=== PATIENT | female | born 1975 | race Caucasian/White ===

== ENCOUNTER 2024-07-21 10:10 | Emergency (ER) | payer SELFPAY ==
[~2024-07-21] VITALS: Ht 153.7 cm; Wt 66.7 kg
[2024-07-21 10:16] VITALS: BP 153/71; PULSE 64; RESP 17; TEMP 98.6; O2SAT 99
[2024-07-21] MEDS ORDERED: DICYCLOMINE HCL LIQUID 10 MG/5 ML UDC ONE (10:46)
[2024-07-21] MEDS ORDERED: ALUMINUM HYD/MAG/SIMETHICONE 30 ML UDC ONE (10:46)
[2024-07-21 10:49] LABS: APPEARANCE,URINE CLEAR (CLEAR); BILIRUBIN,URINE NEGATIVE (NEGATIVE); BLOOD, URINE NEGATIVE (NEGATIVE); COLOR,URINE YELLOW (YELLOW); LEUKOCYTE ESTERASE ,URINE NEGATIVE (NEGATIVE); NITRITE, URINE NEGATIVE (NEGATIVE); PH,URINE 6.5 (5.0-9.0); PROTEIN,URINE NEGATIVE (NEGATIVE); UGLUCOSE NEGATIVE (NEGATIVE); UROBILINOGEN,URINE 0.2 EU/dL (0.2 - 1)
[2024-07-21] MEDS: DICYCLOMINE HCL LIQUID 20 MG, ALUMINUM HYD/MAG/SIMETHICONE 30 ML, LIDOCAINE VISCOUS 2% ... PO ONE (10:50)
[2024-07-21] MEDS: PANTOPRAZOLE 40 MG TABEC PO ONE (10:52)
[2024-07-21] MEDS: ONDANSETRON 4 MG ODT PO ONE (10:54)
--- NOTE | 2024-07-21 11:04 | NUR ---
48 Y/O F B[facility] WITH C/O ABD PAIN ASSOCIATED WITH EATING A SPICY TACO; PT STATES PAIN IS CENTRALIZED IN THE EPIGASTRIC REGION AND RADIATES TO THE BACK. PT STATES SHE HAS NASUEA BUT DENIES V/D; SKIN IS PINK/WARM/DRY; AAOX4 WITH EVEN AND STEADY GAIT; LUNGS CLEAR BL; HR EVEN AND REGULAR; PT DENIES ANY FEVER, CP, SOB, OR COUGH AT THIS TIME; PATIENT STATES PAIN OF 7/10 AT THIS TIME; VSS; PATIENT POSITIONED FOR COMFORT; HOB ELEVATED; BEDRAILS UP X2; BED DOWN. CALL LIGHT WITH IN REACH; URINE SAMPLE OBTAINED PER MD ORDERS; ER MD MADE AWARE OF PT STATUS. PMH: DENIES ALLERGIES NKA
--- NOTE | 2024-07-21 11:08 | NUR ---
PT HAS BEEN MEDICATED PER PROVIDERS ORDERS.
[2024-07-21 11:09] VITALS: O2SAT 100
[2024-07-21 11:46] LABS: BASOPHILS % (AUTO) 0.3 % (0.0-2.0); EOSINOPHILS # (AUTO) 0.2 K/uL (0-0.4); EOSINOPHILS % (AUTO) 1.1 % (0.0-4.0); HEMATOCRIT 42.3 % (36-48); HEMOGLOBIN 13.6 g/dL (12.0-16.0); LYMPHOCYTES # (AUTO) 0.8 K/uL (2.5-16.5); LYMPHOCYTES % (AUTO) 5.7 % (20.5-51.1); MEAN CORPUSCULAR HEMOGLOBIN 26 pg (27-31); MEAN CORPUSCULAR HGB CONC 32 g/dL (33-37); MEAN CORPUSCULAR VOLUME 80.1 fL (80-94); MONOCYTES # (AUTO) 0.6 K/uL (0.8-1.0); MONOCYTES % (AUTO) 4.2 % (1.7-9.3); NEUTROPHILS # (AUTO) 12.4 K/uL (1.8-7.7); NEUTROPHILS % (AUTO) 88.7 % (42.2-75.2); PLATELET COUNT (AUTO) 326 K/uL (140-450); RED BLOOD CELL COUNT(AUTO) 5.28 MIL/uL (4.20-5.40); RED CELL DISTRIBUTION WIDTH 14.9 % (11.6-13.7)
[2024-07-21 11:59] LABS: ALBUMIN 4.3 g/dL (3.4-5.0); ANION GAP 14.5 (8-16); CALCIUM 9.4 mg/dL (8.5-10.1); CARBON DIOXIDE 28.7 mmol/L (21-32); CREATININE 0.9 mg/dL (0.6-1.3); POTASSIUM 4.2 mmol/L (3.5-5.1); TOTAL BILIRUBIN 0.4 mg/dL (0.0-1.0); TOTAL PROTEIN, SERUM 8.4 g/dL (6.4-8.2)
[2024-07-21] MEDS ORDERED: OMEP20EC11 PO (13:38)
[2024-07-21] MEDS ORDERED: ACET500T99 PO (13:38)
[2024-07-21] MEDS ORDERED: MAG355OR2 PO (13:38)
[2024-07-21 14:10] VITALS: BP 153/71; PULSE 64; RESP 17; TEMP 98.6; O2SAT 100
--- NOTE | 2024-07-21 14:14 | NUR ---
Patient discharged with v/s stable. Written and verbal after care instructions given and explained. Patient verbalized understanding. Ambulatory with steady gait. All questions addressed prior to discharge. Advised to follow up with PMD.
--- NOTE | 2024-07-21 14:22 | NUR ---
Chart checked and completed. The patient's care was reviewed and supervised by ROSALBA BROUSSARD RN.
== END 2024-07-21 11:14 | disposition home or self-care (01) ==
LOC: MED 10:10
DX: K29.70 Gastritis, unspecified, without bleeding (principal); Z79.899 Other long term (current) drug therapy
CPT/HCPCS: 36415; 76705; 80053; 81001; 81003; 81025; 83690; 85025; 99284; Q0092; Q0162